=== PATIENT | male | born 1960 | race Caucasian/White ===

== ENCOUNTER 2020-12-04 04:44 | Day surgery (SDC) | payer BC ==
[2020-12-03 11:06] VITALS: BMI 27.0
[2020-12-04] MEDS ORDERED: KETAMINE HCL 200 MG/20 ML VIAL ONE (06:35)
[2020-12-04 08:43] VITALS: TEMP 98
[2020-12-04 11:03] VITALS: PULSE 65
[2020-12-04 11:07] VITALS: BP 116/83
== END 2020-12-04 09:10 | disposition home or self-care (01) ==
LOC: JASU-ENDO 04:44
PROVIDERS: ATTEND Internal Medicine Gastroenterology
PROC: 0DBL8ZX Excision of Transverse Colon, Via Natural or Artificial Opening Endoscopic, Diagnostic (ICD-10-PCS; 2020-12-04)
PROC: 0DBN8ZX Excision of Sigmoid Colon, Via Natural or Artificial Opening Endoscopic, Diagnostic (ICD-10-PCS; principal; 2020-12-04 08:00)
DX: Z12.11 Encounter for screening for malignant neoplasm of colon (principal); D12.3 Benign neoplasm of transverse colon; K57.30 Diverticulosis of large intestine without perforation or abscess without bleeding; K64.8 Other hemorrhoids; Z86.010 Personal history of colon polyps
CPT/HCPCS: 88305-TC